=== PATIENT | female | born 1940 ===

== ENCOUNTER 2020-07-14 14:58 | Inpatient (IN) | payer MEDICARE, OTHER ==
[~2020-07-14] VITALS: Ht 162.6 cm; Wt 73.8 kg
[2020-07-14] MEDS ORDERED: ATEN50TA41 PO (17:02)
[2020-07-14] MEDS ORDERED: BACI1CAP6 PO (17:02)
[2020-07-14] MEDS ORDERED: LOSA25TA12 PO (17:02)
[2020-07-14] MEDS ORDERED: ALBU90AE2 INH (17:02)
[2020-07-14] MEDS ORDERED: FLUC50TA3 PO (17:02)
[2020-07-14] MEDS ORDERED: MULT-658 PO (17:03)
[2020-07-14] MEDS ORDERED: INSU100V8 SQ (17:04)
[2020-07-14] MEDS ORDERED: TIZA4CAP PO (17:06)
[2020-07-14 17:09] VITALS: BP 157/71
[2020-07-14] MEDS ORDERED: MONT10TA11 PO (17:18)
[2020-07-14] MEDS ORDERED: ASPI-515 PO (17:18)
[2020-07-14] MEDS ORDERED: HYDR25TA6 PO (17:18)
[2020-07-14] MEDS ORDERED: METF-649 PO (17:18)
[2020-07-14] MEDS ORDERED: hydrALAzine 20 MG/ML, 1ML IVPush PRN (17:30)
[2020-07-14] MEDS ORDERED: MELATONIN 5 MG TABLET PO PRN (17:30)
[2020-07-14] MEDS ORDERED: ONDANSETRON ODT 4 MG PO PRN (17:30)
[2020-07-14] MEDS ORDERED: LABETALOL 5MG/ML, 20ML IVPush PRN (17:30)
[2020-07-14] MEDS ORDERED: GUAIFENESIN/DM 200-20MG, 10ML UDC PO PRN (17:30)
[2020-07-14] MEDS ORDERED: LORazepam 2 MG/ML, 1ML IVPush PRN (17:30)
[2020-07-14] MEDS: ENOXAPARIN 30 MG/0.3 ML SQ SCH (18:22)
[2020-07-14] MEDS: D5%-0.45NACL+KCL 20MEQ 1,000 ML IV SCH (18:23)
[2020-07-14 18:53] VITALS: BP 151/51
[2020-07-14] MEDS: HYDROmorphone 2 MG/ML, 1ML IVPush PRN (20:17)
[2020-07-14] MEDS: FAMOTIDINE 20 MG/2 ML IVPush SCH (20:17)
[2020-07-15] MEDS: HYDROmorphone 2 MG/ML, 1ML IVPush PRN ×7 (00:46→23:03)
[2020-07-15 01:07] VITALS: BP 119/58
[2020-07-15] MEDS: D5%-0.45NACL+KCL 20MEQ 1,000 ML IV SCH ×3 (01:59→23:02)
[2020-07-15 04:42] LABS: BASOPHILS # (AUTO) 0.04 x10^3/uL (0-0.1); BASOPHILS % (AUTO) 1 % (0-1); EOSINOPHILS % (AUTO) 0 % (1-7); LYMPHOCYTES # (AUTO) 1.58 x10^3/uL (1-3.4); LYMPHOCYTES % (AUTO) 28 % (22-44); MD NO; MEAN CORPUSCULAR HEMOGLOBIN 30.6 pg (27.0-34.8); MEAN CORPUSCULAR VOLUME 95.6 fL (80-100); MEAN PLATELET VOLUME 9.7 fL (7.4-10.4); MONOCYTES # (AUTO) 0.79 x10^3/uL (0.2-0.8); MONOCYTES % (AUTO) 14 % (2-9); NEUTROPHILS # (AUTO) 3.28 x10^3/uL (1.8-6.8); NEUTROPHILS % (AUTO) 58 % (42-75); PLATELET COUNT 176 x10^3/uL (130-400); RED BLOOD COUNT 4.06 x10^6/uL (3.82-5.3); RED CELL DISTRIBUTION WIDTH 12.8 % (9.6-15.2)
[2020-07-15 04:49] LABS: ALANINE AMINOTRANSFERASE 23 U/L (12-78); ALBUMIN 2.7 g/dL (3.4-5.0); ANION GAP 5 mmol/L (5-15); CALCIUM 9.2 mg/dL (8.5-10.1); CHLORIDE 102 mmol/L (98-107); CREATININE 0.61 mg/dL (0.55-1.02)
[2020-07-15 04:52] LABS: ALKALINE PHOSPHATASE 144 U/L (45-117); BILIRUBIN,TOTAL 1.2 mg/dL (0.2-1.0); TOTAL PROTEIN 5.9 g/dL (6.4-8.2)
[2020-07-15 07:42] VITALS: BP 182/74
[2020-07-15] MEDS: FAMOTIDINE 20 MG/2 ML IVPush SCH (07:54)
[2020-07-15] MEDS: SENNA/DOCUSATE TABLET PO SCH (07:54)
[2020-07-15] MEDS: ENOXAPARIN 30 MG/0.3 ML SQ SCH ×2 (07:58→20:08)
[2020-07-15 08:22] VITALS: BP 127/65
[2020-07-15 13:12] VITALS: BP 132/64
[2020-07-15] MEDS: ONDANSETRON 2MG/ML, 2ML IVPush PRN (14:43)
[2020-07-15] MEDS ORDERED: ALBUTEROL SULFATE 200 PUFFS/8.5 GR INH INH ONE (15:30)
[2020-07-15] MEDS: ALBUTEROL HFA 90 MCG/SPRAY INH PRN ×3 (18:02→18:04)
[2020-07-15 19:13] VITALS: BP 169/71
[2020-07-15] MEDS: FAMOTIDINE 20 MG TABLET PO SCH (20:07)
[2020-07-15] MEDS: MONTELUKAST 10 MG TABLET PO SCH (20:08)
[2020-07-15] MEDS: metFORMIN XR 500 MG TAB.ER.24H PO SCH (20:08)
[2020-07-16 02:00] VITALS: BP 157/70
[2020-07-16] MEDS: HYDROmorphone 2 MG/ML, 1ML IVPush PRN ×5 (02:12→21:35)
[2020-07-16] MEDS: D5%-0.45NACL+KCL 20MEQ 1,000 ML IV SCH ×3 (06:38→23:41)
[2020-07-16 07:18] VITALS: BP 194/65
[2020-07-16] MEDS: LOSARTAN 50MG TABLET PO SCH (07:24)
[2020-07-16] MEDS: metFORMIN XR 500 MG TAB.ER.24H PO SCH ×2 (07:24→20:33)
[2020-07-16] MEDS: ENOXAPARIN 30 MG/0.3 ML SQ SCH ×2 (07:24→20:33)
[2020-07-16] MEDS: SENNA/DOCUSATE TABLET PO SCH (07:25)
[2020-07-16] MEDS: TIZANIDINE 4MG TABLET PO SCH (07:25)
[2020-07-16 07:45] VITALS: BP 167/72
[2020-07-16] MEDS ORDERED: FENTANYL 25 MCG PATCH TD SCH (11:00)
[2020-07-16 12:35] VITALS: BP 108/58
[2020-07-16 18:41] VITALS: BP 124/55
[2020-07-16] MEDS: MONTELUKAST 10 MG TABLET PO SCH (20:33)
[2020-07-16] MEDS: FAMOTIDINE 20 MG TABLET PO SCH (20:36)
[2020-07-17 00:21] VITALS: BP 142/64
[2020-07-17] MEDS: HYDROmorphone 2 MG/ML, 1ML IVPush PRN ×7 (01:49→23:10)
[2020-07-17] MEDS: D5%-0.45NACL+KCL 20MEQ 1,000 ML IV SCH ×3 (06:45→23:10)
[2020-07-17 07:24] VITALS: BP 178/68
[2020-07-17] MEDS: ONDANSETRON 2MG/ML, 2ML IVPush PRN ×2 (09:18→19:50)
[2020-07-17] MEDS: LOSARTAN 50MG TABLET PO SCH (09:19)
[2020-07-17] MEDS: ENOXAPARIN 30 MG/0.3 ML SQ SCH ×2 (09:19→19:51)
[2020-07-17] MEDS: SENNA/DOCUSATE TABLET PO SCH (09:19)
[2020-07-17] MEDS: metFORMIN XR 500 MG TAB.ER.24H PO SCH ×2 (09:19→21:09)
[2020-07-17] MEDS: TIZANIDINE 4MG TABLET PO SCH (09:19)
[2020-07-17 12:30] VITALS: BP 103/58
[2020-07-17 21:09] VITALS: BP 172/74
[2020-07-17] MEDS: MONTELUKAST 10 MG TABLET PO SCH (21:09)
[2020-07-17] MEDS: FAMOTIDINE 20 MG TABLET PO SCH (21:09)
[2020-07-18 01:26] VITALS: BP 149/61
[2020-07-18] MEDS: HYDROmorphone 2 MG/ML, 1ML IVPush PRN ×3 (05:15→14:43)
[2020-07-18 07:12] VITALS: BP 183/65
[2020-07-18] MEDS: D5%-0.45NACL+KCL 20MEQ 1,000 ML IV SCH (07:32)
[2020-07-18] MEDS: ENOXAPARIN 30 MG/0.3 ML SQ SCH (07:33)
[2020-07-18] MEDS: metFORMIN XR 500 MG TAB.ER.24H PO SCH (07:33)
[2020-07-18] MEDS: TIZANIDINE 4MG TABLET PO SCH (07:33)
[2020-07-18] MEDS: SENNA/DOCUSATE TABLET PO SCH (07:33)
[2020-07-18] MEDS: LOSARTAN 50MG TABLET PO SCH (07:33)
[2020-07-18] MEDS ORDERED: FENTANYL 25 MCG PATCH TD SCH (10:30)
[2020-07-18] MEDS ORDERED: FENTANYL 12 MCG PATCH TD SCH ×2 (10:30→10:45)
[2020-07-18] MEDS ORDERED: FENTANYL REMOVE PATCH NOTE XX SCH (10:30)
[2020-07-18] MEDS ORDERED: FENT1PAT75 TD (12:30)
[2020-07-18] MEDS ORDERED: ONDA4TAB13 PO (12:30)
[2020-07-18] MEDS ORDERED: Senna/Docusate PO (12:30)
[2020-07-18] MEDS ORDERED: FENT1PAT74 TD (12:30)
[2020-07-18] MEDS ORDERED: FAMO20TA7 PO (12:30)
[2020-07-18 12:49] VITALS: BP 133/72
== END 2020-07-18 14:56 | disposition hospice, home (50) | DRG 435 ==
LOC: 4NW 16:18
PROVIDERS: ADMIT Internal Medicine; ATTEND Hospitalist
DX: C25.9 Malignant neoplasm of pancreas, unspecified (principal); E43 Unspecified severe protein-calorie malnutrition; C79.72 Secondary malignant neoplasm of left adrenal gland; C78.7 Secondary malignant neoplasm of liver and intrahepatic bile duct; I10 Essential (primary) hypertension; E11.42 Type 2 diabetes mellitus with diabetic polyneuropathy; E80.6 Other disorders of bilirubin metabolism; Z66 Do not resuscitate; M17.0 Bilateral primary osteoarthritis of knee; Z68.27 Body mass index [BMI] 27.0-27.9, adult; Z90.49 Acquired absence of other specified parts of digestive tract; Z88.0 Allergy status to penicillin; Z88.1 Allergy status to other antibiotic agents
CPT/HCPCS: 36415; 74181; 80053; 85025; 86301; G0378; J1170; J1650; J2405; Q0162; J3480; J3490